=== PATIENT | female | born 1945 | race Caucasian/White ===

== ENCOUNTER 2020-11-18 07:17 | Outpatient (CLI) | payer MEDICARE, SELFPAY ==
--- NOTE | ~2020-11-18 | NM_ITS ---
EXAMINATION: NM bone 3 phase DATE: 11/18/2020 11:51 INDICATION: Left knee pain with abnormal MRI TECHNIQUE: 25.2 mCi Tc-99m HDP by intravenous route. Scintigrams of the bilateral knees were obtaine d in angiographic, blood pool, and delayed phases. COMPARISON: Outside radiographs of the left knee dated 06/27/2020. No more recent imaging or reported MRI available for comparison. FINDINGS: Photopenic defect at the right knee corresponding to a total knee arthroplasty with no abnormal activ ity at the right knee. There is prominent match 3 phase uptake at the medial aspect of the left knee. Small focus of delayed uptake at the lateral aspect of the proximal left tibia. IMPRESSION: 1. Nonspecific matched 3 phase uptake at the medial compartment of the left knee. This could be seen in the setting of acute fracture, infection or other acute inflammatory process. 2. Small focus of increased uptake at the lateral aspect of the proximal tibia but low-level of the a rticular surface, potentially associated with arthritis at the proximal tibiofibular articulation. Wo uld recommend correlation both this and the above finding with more recent radiographs or MRI. Reviewed, dictated and finalized at location B. IMPRESSION: 1. Nonspecific matched 3 phase uptake at the medial compartment of the left kn ee. This could be seen in the setting of acute fracture, infection or other acu te inflammatory process. 2. Small focus of increased uptake at the lateral aspect of the proximal tibia but low-level of the articular surface, potentially associated with arthritis a t the proximal tibiofibular articulation. Would recommend correlation both this and the above finding with more recent radiographs or MRI.
== END 2020-11-18 07:18 | disposition home or self-care (01) ==
LOC: ANHIMG 07:23
PROVIDERS: PCP Internal Medicine; Visit Provider Orthopaedic Surgery
DX: M25.562 Pain in left knee (principal)
CPT/HCPCS: 78315; A9561

== ENCOUNTER 2021-06-01 13:37 | Outpatient (CLI) | payer MEDICARE, SELFPAY ==
--- NOTE | ~2021-06-01 | US_ITS ---
EXAMINATION: US art doppler w press LE BI DATE: 06/01/2021 14:41 INDICATION: Peripheral vascular disease TECHNIQUE: Segmental pressures and plethysmographic and Doppler waveforms of the brachial and lower e xtremity arteries were obtained. COMPARISON: None. FINDINGS: Right and left brachial artery pressures of 167 mm Hg and 168 mm Hg, respectively, are concordant (no rmal difference <= 30 mmHg). The right and left high-thigh pressure indices are 1.10 and 0.76, respec tively were unable to be obtained due to inability to occlude the vessels above level of the ankles i n either lower limb (normal > 1.2). The right ankle-brachial index (YOLANDA) is 1.10 (normal >= 0.9-1). The right great toe-brachial index (T BI) is 0.76 (normal >= 0.6-0.8). The right lower extremity segmental pressure gradients are normal (n ormal gradients <= 20-30 mmHg between adjacent levels on the same leg or the same levels on the two l egs). Arterial waveforms are biphasic with brisk systolic upstrokes throughout the arteries of the ri ght lower limb. The left YOLANDA is 0.92. The left TBI is 0.43. The left lower extremity segmental pressure gradients are increased between the left posterior tibial artery and the contralateral right posterior tibial augustus ry. Arterial waveforms are biphasic with brisk systolic upstrokes throughout the arteries at the left lower limb. IMPRESSION: 1. No significant arterial occlusive disease to the right lower limb with normal right YOLANDA and TBI. 2. 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 Reviewed, dictated and finalized at location A. IMPRESSION: 1. No significant arterial occlusive disease to the right lower limb with manan l right YOLANDA and TBI. 2. 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
== END 2021-06-01 13:38 | disposition home or self-care (01) ==
PROVIDERS: PCP Internal Medicine; Visit Provider Podiatrist Foot & Ankle Surgery
DX: I73.9 Peripheral vascular disease, unspecified (principal)
CPT/HCPCS: 93923

== ENCOUNTER 2022-05-17 13:30 | Outpatient (CLI) | payer MEDICARE, SELFPAY ==
--- NOTE | ~2022-05-17 | CT_ITS ---
EXAMINATION: CTA abd aorta runoff DATE: 05/17/2022 13:57 INDICATION: Peripheral vascular disease. TECHNIQUE: Computed tomographic angiography (CTA) of the abdominal, pelvis, and both lower extremitie s was performed with 150 mL Omnipaque-350 intravenous contrast. Automated exposure control and iterat milagros reconstruction technique were employed. The dose-length product was 1632.32 mGy-cm. Maximum inten sity projection 3D-reconstructions of the arteries were created by the technologist on a separate wor kstation. COMPARISON: None. FINDINGS: ABDOMINAL AORTA AND ITS BRANCHES: The aorta is normal in caliber. There is mild aortic atherosclerosis. There is no significant stenosi s of celiac axis, superior mesenteric artery, the renal arteries, or inferior mesenteric artery. PELVIC VASCULATURE: There is no significant stenosis of the common iliac arteries, internal iliac arteries, or external i liac arteries. RIGHT LOWER EXTREMITY VASCULATURE: There is no significant stenosis of right common femoral artery, profunda femoris, superficial femora l artery, popliteal artery, tibioperoneal trunk, peroneal artery, anterior tibial artery, or posterio r tibial artery. LEFT LOWER EXTREMITY VASCULATURE: There is no significant stenosis of left common femoral artery, profunda femoris, superficial femoral artery, popliteal artery, tibioperoneal trunk, peroneal artery, anterior tibial artery, or posterior tibial artery. ADDITIONAL FINDINGS: The visualized portions of the lung bases demonstrate minimal atelectasis. No pleural effusion. There is a small sliding hiatal hernia. The liver is normal. There are gallstones in the gallbladder, whic h is normal in size. The spleen is normal. There is pancreas divisum. The adrenal glands are normal. Right kidney is normal. There is a 1.8 cm cyst in left kidney. There are no dilated loops of bowel. T here is a large volume of stool in the colon. The appendix is normal. There are no pathologically enl arged lymph nodes. There is no free intraperitoneal fluid. There are changes of posterior fusion proc edure at L4-L5. There is a total right knee arthroplasty. IMPRESSION: 1. No significant arterial occlusive disease. 2. Small sliding hiatal hernia. 3. Cholelithiasis. Reviewed, dictated and finalized at location A.
[2022-05-17 13:52] LABS: Estimated Glomerular Filt Rate > 60
== END 2022-05-17 13:31 | disposition home or self-care (01) ==
LOC: ANHIMG 13:31
PROVIDERS: PCP Internal Medicine; Visit Provider Internal Medicine
DX: I73.9 Peripheral vascular disease, unspecified (principal); K44.9 Diaphragmatic hernia without obstruction or gangrene; K80.20 Calculus of gallbladder without cholecystitis without obstruction
CPT/HCPCS: 75635; Q9967